=== PATIENT | female | born 2000 | race African-American/Black ===

== ENCOUNTER 2022-10-14 12:08 | Emergency (ER) | payer MEDICAID ==
[~2022-10-14] VITALS: Ht 172.7 cm; Wt 119.0 kg
[2022-10-14 12:20] VITALS: BP 153/87
[2022-10-14] MEDS ORDERED: IBUPROFEN 600MG TABLET PO STA (14:22)
[2022-10-14] MEDS ORDERED: D-ME473S50 PO (16:12)
[2022-10-14] MEDS ORDERED: NAPR-681 MT (16:12)
== END 2022-10-14 16:33 | disposition home or self-care (01) ==
LOC: ER 12:17
DX: J06.9 Acute upper respiratory infection, unspecified (principal); J02.8 Acute pharyngitis due to other specified organisms; Z20.822 Contact with and (suspected) exposure to COVID-19
CPT/HCPCS: 81025; 87070; 87426; 87430; 99283; C9803